=== PATIENT | male | born 1975 | race Caucasian/White ===

== ENCOUNTER → 2021-08-21 09:39 | Outpatient (CLI) | payer OTHER, SELFPAY | PROVIDERS: PCP Family Medicine; Visit Provider Nurse Practitioner | DX: Z20.822 Contact with and (suspected) exposure to COVID-19 (principal) | CPT/HCPCS: C9803; U0003; U0005 ==

== ENCOUNTER → 2021-12-02 12:10 | Outpatient (CLI) | payer OTHER, SELFPAY | PROVIDERS: PCP Family Medicine; Visit Provider Nurse Practitioner | DX: U07.1 COVID-19 (principal) | CPT/HCPCS: C9803; U0003; U0005 ==

== ENCOUNTER 2023-01-26 19:10 | Emergency (ER) | payer BC, SELFPAY ==
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
[2023-01-26 19:13] VITALS: BP 146/89; PULSE 105; RESP 16; TEMP 37; O2SAT 97
--- NOTE | 2023-01-26 19:15 | PC.NURSE ---
1909 pt refused all lab work and needles .
--- NOTE | 2023-01-26 19:18 | PC.NURSE ---
shift change report given to mannrn
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
--- NOTE | 2023-01-26 19:30 | PC.NURSE ---
Laceration/wound cleaned and prepped for closure.
[2023-01-26 20:20] VITALS: BP 140/82; PULSE 89; RESP 18; TEMP 36.6; O2SAT 99
[2023-01-26 20:24] VITALS: BMI 25.4
== END 2023-01-26 20:27 | disposition home or self-care (01) ==
PROVIDERS: Emergency Provider Student in an Organized Health Care Education/Training Program
DX: S09.8XXA Other specified injuries of head, initial encounter (principal); S01.01XA Laceration without foreign body of scalp, initial encounter; S80.11XA Contusion of right lower leg, initial encounter; V86.55XA Driver of 3- or 4- wheeled all-terrain vehicle (ATV) injured in nontraffic accident, initial encounter; Z23 Encounter for immunization
CPT/HCPCS: 12004; 73590; 90471; 90715; 99283; 99284